=== PATIENT | female | born 1950 | race Caucasian/White ===

== ENCOUNTER 2020-09-22 09:36 | Day surgery (SDC) | payer MEDICARE, MEDICAID ==
[~2020-09-22] VITALS: Ht 304.8 cm; Wt 81.8 kg
[2020-09-22] MEDS ORDERED: SODIUM CHLORIDE 0.9% 1,000 ML IV ONE ×2 (10:00)
[2020-09-22] MEDS ORDERED: AMLO5TAB66 PO (10:51)
[2020-09-22] MEDS ORDERED: EZET10TA57 PO (10:51)
[2020-09-22] MEDS ORDERED: CARV12.530 PO (10:51)
[2020-09-22] MEDS ORDERED: LEVO88TA7 PO (10:51)
[2020-09-22] MEDS ORDERED: DAPA1TAB5 PO (10:51)
[2020-09-22] MEDS ORDERED: ATOR40TA71 PO (10:51)
[2020-09-22 11:30] LABS: GLUCOMETER DEV NAME(LOC) SDS.; GLUCOSE,POINT OF CARE 236 MG/DL (70-110)
[2020-09-22] MEDS ORDERED: DiphenhydrAMINE HCL 50 MG CAPSULE PO ONE (12:00)
[2020-09-22] MEDS ORDERED: ASPIRIN 81 MG CHEWABLE TABLET PO ONE (12:00)
[2020-09-22] MEDS ORDERED: DIAZEPAM 5 MG TABLET PO ONE (12:00)
[2020-09-22] MEDS ORDERED: LIDOCAINE/PF 1% 30 ML VIAL ONE (12:01)
[2020-09-22] MEDS ORDERED: IOHEXOL 300 MG/ML 100 ML VIAL ONE (12:01)
[2020-09-22] MEDS ORDERED: IOHEXOL 300 MG/ML 150 ML VIAL ONE (12:01)
[2020-09-22] MEDS ORDERED: SODIUM BICARBONATE 50 MEQ/50 ML VIAL ONE (12:01)
[2020-09-22 12:27] VITALS: BP 155/72
[2020-09-22] MEDS ORDERED: FentaNYL CITRATE PF 100 MCG/2 ML VIAL ONE (12:35)
[2020-09-22] MEDS ORDERED: MIDAZOLAM HCL 2 MG/2 ML VIAL ONE (12:36)
[2020-09-22] MEDS ORDERED: IOHEXOL 300 MG/ML 150 ML VIAL IARTER ONE (12:45)
[2020-09-22] MEDS ORDERED: HEPARIN SODIUM 1000 UNITS/NS 1,000 ML IARTER ONE (12:45)
[2020-09-22] MEDS ORDERED: MIDAZOLAM HCL 2 MG/2 ML VIAL IVP ONE (12:45)
[2020-09-22] MEDS ORDERED: LIDOCAINE 1% 30 ML/SOD BICARB 8.4% 4 ML SQ ONE (12:45)
[2020-09-22] MEDS ORDERED: FentaNYL CITRATE PF 100 MCG/2 ML VIAL IVP ONE (12:45)
[2020-09-22] MEDS ORDERED: IOHEXOL 300 MG/ML 50 ML VIAL ONE (13:04)
[2020-09-22 13:35] VITALS: BP 154/76
== END 2020-09-22 16:30 | disposition home or self-care (01) ==
LOC: CATHLAB 09:36 → EDBD 12:00 → CATHLAB 16:30
PROVIDERS: ATTEND Internal Medicine Interventional Cardiology
DX: I25.10 Atherosclerotic heart disease of native coronary artery without angina pectoris (principal); E11.9 Type 2 diabetes mellitus without complications; I10 Essential (primary) hypertension; E78.5 Hyperlipidemia, unspecified; I42.9 Cardiomyopathy, unspecified; Z90.49 Acquired absence of other specified parts of digestive tract; Z98.890 Other specified postprocedural states; Z79.899 Other long term (current) drug therapy
CPT/HCPCS: 82962; 93005; 93459; 93567; 99152; 99153; C1760; J2250; J3010; J3490 ×2; Q9967 ×3